=== PATIENT | female | born 1950 | race Caucasian/White ===

== ENCOUNTER → 2017-09-17 | Outpatient (CLI) | payer OTHER, MEDICAID ==
[2017-09-17] MEDS: IOHEXOL 300 MG/ML 100ML VIAL. IV (11:01)
[2017-09-17] MEDS: IOHEXOL 240 MG/ML 50ML VIAL. PO (11:02)
== END | disposition home or self-care (01) ==
LOC: CT 09:10
DX: K76.0 Fatty (change of) liver, not elsewhere classified (principal); R16.0 Hepatomegaly, not elsewhere classified; Z90.49 Acquired absence of other specified parts of digestive tract
CPT/HCPCS: 74177; Q9966; Q9967